=== PATIENT | male | born 1975 | race Caucasian/White ===

== ENCOUNTER 2017-08-14 21:35 | Emergency (ER) | payer OTHER ==
[2017-08-14 21:43] VITALS: BP 109/86; PULSE 66; TEMP 97.7; BMI 29.5
[2017-08-14] MEDS ORDERED: SODIUM CHLORIDE 1,000 ML IV STA (21:45)
--- NOTE | 2017-08-14 21:46 | PDOC ---
History of Present Illness - General Chief Complaint: Pain, Acute Stated Complaint: PAIN Time Seen by Provider: 08/14/17 21:44 - History of Present Illness Initial Comments: 08/14/17 21:56 The patient is a 42 year old male with no significant PMH who presents for evaluation of left sided flank pain. The patient reports sudden onset of sharp left sided flank pain with radiation into his left abdomen 4 hour prior to presentation to the ED. The patient reports some associated nausea and 3 episodes of non-bilious, non-bloody vomiting as well. He denies similar symptoms in the past and otherwise denies fevers, chills, SOB, chest pain, or changes with urination or bowel movements. Past History - Past Medical History Allergies/Adverse Reactions: Allergies Allergy/AdvReac Type Severity Reaction Status Date / Time No Known Allergies Allergy Verified 08/14/17 21:42 Home Medications: Ambulatory Orders Ranitidine HCl [Zantac] 150 mg PO DAILY 12/26/15 COPD: No Psychiatric Problems: Yes (bi polar) Other medical history: gallstones - Surgical History Cholecystectomy: Yes - Suicide/Smoking/Psychosocial Hx Smoking History: Current every day smoker Have you smoked in the past 12 months: Yes Number of Cigarettes Smoked Daily: 5 Information on smoking cessation initiated: No Hx Alcohol Use: No Drug/Substance Use Hx: No Substance Use Type: None Hx Substance Use Treatment: No Review of Systems - Review of Systems Comments:: 08/14/17 21:58 Constitutional: No fevers, chills, fatigue, malaise HEENT: No Rhinorrhea, nasal congestion, visual changes Cardiovascular: No chest pain, syncope, palpitations, lightheadedness Respiratory: No Cough, SOB, Hemoptysis, Gastrointestinal: Nausea, Vomiting. No Constipation, Diarrhea, Melena Genitourinary: Flank Pain. No Dysuria, Frequency, Urgency, Hesitancy, Hematuria , Musculoskeletal: No Myalgia, arthralgia Skin: No rashes, itching, bruising, pallor Neurologic: No Headache, Dizziness, Numbness, Weakness, or Tingling Psychiatric: No Hallucinations. No SI or HI *Physical Exam - Vital Signs Last Vital Signs Temp Pulse Resp BP Pulse Ox 97.7 F 66 17 109/86 100 08/14/17 21:40 08/14/17 21:40 08/14/17 21:40 08/14/17 21:40 08/14/17 21:40 - Physical Exam Comments: 08/14/17 21:58 General Appearance: Nourished. In Mild Apparent Distress HEENT: EOMI, ADAM. No Pharyngeal Erythema, Tonsillar Exudate, Tonsillar Erythema Neck: No Cervical Lymphadenopathy Respiratory/Chest: Lungs Clear, Normal Breath Sounds. No Crackles, Rales, Rhonchi, Wheezing Cardiovascular: Regular Rhythm, Regular Rate. No Murmur, Gallops, Rubs Gastrointestinal/Abdominal: Normal Bowel Sounds, Soft. Mild Diffuse discomfort with palpation. No Guarding, Rebound, Musculoskeletal: No CVA Tenderness Extremity: Normal Capillary Refill Integumentary: Normal Color, Dry, Warm Neurologic: Fully Oriented, Alert, Normal Mood/Affect, Normal Response, ED Treatment Course - LABORATORY CBC & Chemistry Diagram: 08/14/17 22:30 08/14/17 22:30 Medical Decision Making - Medical Decision Making 08/14/17 21:59 The patient is a 42 year old male with no significant PMH who presents for evaluation of left sided flank pain. Differential includes but is not limited to: Kidney stone, UTI, pyelonephritis, Infectious, Metabolic Derangement. Given the patient's history and physical exam, we will obtain a cbc, cmp, ua, renal CT to evaluate further for possible etiologies. We will treat in the meantime with iv fluids, toradol and continue to monitor and reassess while here in the ED. 08/15/17 00:21 CBC, cmp are unremarkable. UA demonstrates RBC in the urine. Renal CT is unremarkable as preliminarily read by our web communications specialist radiologist. The patient's symptoms are likely due to a passed kidney stone. He reports significant improvement in his symptoms at this time. We are comfortable discharging the patient home with urology follow up. We discussed the results, plan, and return precautions with the patient who voiced understanding and is agreeable with the plan. *DC/Admit/Observation/Transfer Diagnosis at time of Disposition: Kidney stone - Discharge Dispostion Disposition: HOME Condition at time of disposition: Stable Decision to Admit order: No - Referrals Referrals: Donnie Corbett MD., MD [Staff Physician] - - Patient Instructions Printed Discharge Instructions: DI for Kidney Stones Additional Instructions: Please return to the ER if you experience concerning or worsening symptoms including worsening pain, fevers, or vomiting. Your lab results and imaging studies were consistent with a passed kidney stone. It is important that you call to schedule a follow up appointment with our urologist Dr. Corbett within 2-3 days to discuss your ER visit and further management of your symptoms. - Post Discharge Activity
[2017-08-14] MEDS ORDERED: KETOROLAC TROMETHAMINE 30 MG/1 ML VIAL IVPUSH ONE (21:52)
--- NOTE | 2017-08-14 21:53 | PDOC ---
Attending Attestation - Resident Resident Name: AnnaBhavesh - ED Attending Attestation I have performed the following: I have examined & evaluated the patient, The case was reviewed & discussed with the resident, I agree w/resident's findings & plan - HPI HPI: 08/14/17 21:52 Pt comes with 4 hrs of left flank pain radiating down and around to the abdomen ; pt never had this before, but he admits that he barely drinks water. - Physicial Exam PE: 08/14/17 21:53 Agree with resident exam - Medical Decision Making 08/15/17 00:18 CT scan shows no large stones. Tiny stone at the Left UPJ. Pt has no pain at this time. NSS and toradol allowed resolution of the pain. Pt has hematuria, likely due to the passage of stone. Rest of labs are normal.
[2017-08-14] MEDS ORDERED: KETOROLAC TROMETHAMINE 30 MG/1 ML VIAL ONE (22:01)
[2017-08-14 22:43] LABS: BASO % 0.3 % (0-2.0); HEMATOCRIT 43.8 % (35.4-49); HEMOGLOBIN 14.4 GM/dL (11.7-16.9); LYMPH % 12.1 % (8-40); MCH 27.6 pg (25.7-33.7); MCHC 32.8 g/dl (32.0-35.9); MEAN PLT VOLUME 8.9 fl (7.5-11.1); MONO % 4.3 % (3.8-10.2); NEUT % 83.3 % (42.8-82.8); PLATELET COUNT 248 K/MM3 (134-434); RBC 5.22 M/mm3 (4.00-5.60); RDW 14.1 % (11.9-15.9); WHITE BLOOD COUNT 8.8 K/mm3 (4.0-10.0)
[2017-08-14 23:06] LABS: URINE APPEARANCE CLEAR; URINE BILIRUBIN NEGATIVE (<2.0 mg/dL); URINE BLOOD 2+ (NEGATIVE); URINE COLOR YELLOW; URINE GLUCOSE (UA) NEGATIVE (NEGATIVE); URINE KETONE NEGATIVE (NEGATIVE); URINE LEUK ESTERASE NEGATIVE (NEGATIVE); URINE NITRITE NEGATIVE (NEGATIVE); URINE PROTEIN NEGATIVE (NEGATIVE); URINE UROBILINOGEN NEGATIVE mg/dL (0.2-1.0)
[2017-08-14 23:17] LABS: EPI CELLS RARE /HPF (FEW); URINE MUCUS FEW
[2017-08-14 23:18] LABS: ALBUMIN 3.7 g/dl (3.4-5.0); ANION GAP 10 (8-16); BILIRUBIN,TOTAL 0.2 mg/dL (0.2-1.0); BLOOD UREA NITROGEN 12 mg/dL (7-18); CALCIUM 9.1 mg/dL (8.5-10.1); CHLORIDE 105 mmol/L (98-107); CO2 26 mmol/L (21-32); CREATININE 1.1 mg/dL (0.7-1.3); GLUCOSE,RANDOM 113 mg/dL (74-106); SGPT/ALT 27 U/L (12-78); SODIUM 141 mmol/L (136-145); TOT PROT 7.4 g/dl (6.4-8.2)
[2017-08-14 23:19] LABS: ALK PHOS 109 U/L (45-117); POTASSIUM 4.8 mmol/L (3.5-5.1); SGOT/AST 21 U/L (15-37)
== END 2017-08-15 01:01 | disposition home or self-care (01) ==
LOC: JER 21:35
PROC: 3E0337Z Introduction of Electrolytic and Water Balance Substance into Peripheral Vein, Percutaneous Approach (ICD-10-PCS; principal; 2017-08-14)
PROC: 3E0333Z Introduction of Anti-inflammatory into Peripheral Vein, Percutaneous Approach (ICD-10-PCS; 2017-08-14)
DX: N20.0 Calculus of kidney (principal); F31.9 Bipolar disorder, unspecified; K80.20 Calculus of gallbladder without cholecystitis without obstruction; F17.210 Nicotine dependence, cigarettes, uncomplicated
CPT/HCPCS: 36415; 74176; 80053; 81003; 81015; 85025; 96361; 96374; 99282-25; J7030

== ENCOUNTER 2021-08-25 04:23 | Emergency (ER) | payer OTHER ==
[2021-08-25 04:44] VITALS: BP 124/79; PULSE 58; TEMP 97.7; BMI 30.1
[2021-08-25 05:13] LABS: BASO % 0.7 % (0-2.0); EOS % 3.8 % (0-4.5); HEMATOCRIT 40.1 % (35.4-49); HEMOGLOBIN 13.4 GM/dL (11.7-16.9); LYMPH % 34.9 % (8-40); MCH 28.4 pg (25.7-33.7); MCHC 33.4 g/dl (32.0-35.9); MEAN CELL VOLUME 85.1 fl (80-96); MEAN PLT VOLUME 8.5 fl (7.5-11.1); MONO % 8.5 % (3.8-10.2); NEUT % 52.1 % (42.8-82.8); PLATELET COUNT 202 10^3/uL (134-434); RBC 4.71 M/mm3 (4.00-5.60); RDW 13.7 % (11.9-15.9); WHITE BLOOD COUNT 3.9 K/mm3 (4.0-10.0)
[2021-08-25 05:34] LABS: CALCIUM 8.7 mg/dL (8.5-10.1)
[2021-08-25 05:35] LABS: ALBUMIN 3.2 g/dl (3.4-5.0); BLOOD UREA NITROGEN 11.6 mg/dL (7-18)
[2021-08-25 05:37] LABS: CREATININE 0.9 mg/dL (0.55-1.3)
[2021-08-25 05:39] LABS: BILIRUBIN,TOTAL 0.2 mg/dL (0.2-1); TOT PROT 6.5 g/dl (6.4-8.2)
== END 2021-08-25 06:47 | disposition home or self-care (01) ==
LOC: JER 04:23
DX: R07.89 Other chest pain (principal)
CPT/HCPCS: 36415; 71045-TC-FY; 80053; 83690; 84484; 85025; 93005; 93010; 99285-25

== ENCOUNTER 2023-05-27 13:15 | Emergency (ER) | payer OTHER ==
[2023-05-27 13:27] VITALS: BP 146/93; PULSE 111; RESP 18; TEMP 97.9; BMI 31.6
== END 2023-05-27 16:05 | disposition home or self-care (01) ==
LOC: JERFT 13:15 → JER 13:15 → JERFT 16:05
DX: R05.9 Cough, unspecified (principal); R68.83 Chills (without fever); R61 Generalized hyperhidrosis; R51.9 Headache, unspecified; J02.9 Acute pharyngitis, unspecified; R11.0 Nausea; R19.7 Diarrhea, unspecified; B34.9 Viral infection, unspecified; Z20.822 Contact with and (suspected) exposure to COVID-19
CPT/HCPCS: 0241U-QW; 71046-TC-FY; 87651; 99284-25